=== PATIENT | female | born 2000 | race Caucasian/White ===

== ENCOUNTER → 2021-07-02 | Outpatient (CLI) | payer MEDICAID ==
--- NOTE | 2021-07-02 15:35 | Diagnostic Imaging Report ---
PROCEDURE: US OB single fetus <14 wks. TECHNIQUE: Multiple real-time grayscale images were obtained over the gravid uterus in various projections. INDICATION: Miscarriage. COMPARISON: None available. FINDINGS: Uterus measures 11.0 x 5.7 x 6.2 cm. There is no intrauterine present. The endometrium measures approximately 2.5 cm in thickness and there is no vascularity that would suggest retained products of conception. Right ovary measures 3.7 x 1.7 x 2.8 cm. It is physiologic in appearance with multiple subcentimeter follicles and normal vascularity. No right adnexal mass or cyst that would suggest ectopic . The left ovary measures 5.2 x 2.5 x 2.6 cm. There is a simple anechoic cyst within the left ovary that measures 1.8 x 2.0 cm. Blood flow is present within the left ovary. No complex free pelvic fluid. IMPRESSION: 1. No intrauterine or ectopic . 2. Thickened endometrium is without vascularity to indicate retained products of conception. Dictated by: Dictated on workstation # [id number]
== END ==
LOC: RAD 14:30
PROVIDERS: ATTEND Nurse Practitioner Family
DX: O03.9 Complete or unspecified spontaneous abortion without complication (principal); R93.89 Abnormal findings on diagnostic imaging of other specified body structures
CPT/HCPCS: 76801